=== PATIENT | female | born 1995 | race Caucasian/White ===

== ENCOUNTER 2016-12-24 20:26 | Emergency (ER) | payer OTHER ==
[~2016-12-24] VITALS: Ht 149.8 cm; Wt 39.0 kg
[~2016-12-24 20:26] MED LIST: AMOXICILLIN875 MG PO; BIRTH CONTROL1 EACH PO; CLEOCIN HCL150 MG PO; Elimite 5%60 GM T; KENALOG0.025% TP; MOTRIN600 MG PO; PREDNISONE20 M1 PO; TAMIFLU75 MG PO; TRAMADOL HCL50 MG PO
[2016-12-24] MEDS ORDERED: Motrin,Rufen800 MG PO (21:11)
[2016-12-24] MEDS ORDERED: CEPHALEXIN500 M1 PO (21:11)
== END 2016-12-24 21:22 | disposition home or self-care (01) ==
LOC: ED 20:26
DX: T23.271A Burn of second degree of right wrist, initial encounter (principal); X10.2XXA Contact with fats and cooking oils, initial encounter; Y93.G3 Activity, cooking and baking; Y92.020 Kitchen in mobile home as the place of occurrence of the external cause; Y99.9 Unspecified external cause status